=== PATIENT | female | born 1950 ===

== ENCOUNTER → 2020-09-27 | Outpatient (CLI) | payer SELFPAY ==
[~2020-09-27] MED LIST: COVID-19 VACCINE (PFIZER)/PF 30 MCG/0.3 ML VIAL IM ONE; EPINEPHRINE INJ/PF 1 MG/1 ML AMPULE IM PRN
--- OUTSIDE RECORDS SUMMARY | 2020-09-30 10:34 | XMS REPORT ---
:1950 Demographics Address [address] [place] [address] Mobile Email Address Preferred Language [id number] Marital Status Unknown [employer] Affiliation Unknown Race Unknown Additional Race(s) [id number] White Ethnic Group Unknown Author Organization [facility] Address [facility] [address] [place] [address] Care Team Providers Name Role Phone Sae RUBALCAVA Primary Care Physician Unavailable Suzy Attending Clinician Unavailable Allergies, Adverse Reactions, Alerts This patient has no known allergies or adverse reactions. Medications Ordered Filled Start Stop Current Ordering Indication Dosage Frequency Signature Comments Components Medication Medication Date Date Medication? Clinician (SIG) Name Name cetirizine No cetirizine 10 mg 10 mg tablet TK 1 tablet TK T PO QD 1 T PO QD cyclobenzap No cyclobenza rine 10 mg erma 10 tablet TK 1 mg tablet T PO QPM TK 1 T PO QPM fluticasone No fluticason propionate e 50 propionate mcg/actuati 50 on nasal mcg/actuat spray,suspe ion nasal nsion spray,susp ension levothyroxi No levothyrox ne 50 mcg ine 50 mcg tablet TK 1 tablet TK T PO QD 1 T PO QD levothyroxi No levothyrox ne 75 mcg ine 75 mcg tablet TK 1 tablet TK T PO D IN 1 T PO D THE MORNING IN THE ON AN EMPTY MORNING ON STOMACH AN EMPTY STOMACH Lidocaine No Lidocaine Viscous 2 % Viscous 2 mucosal % mucosal solution solution lovastatin No lovastatin 40 mg 40 mg tablet TK 1 tablet TK T PO D 1 T PO D metoclopram No metoclopra sophia 10 mg mide 10 mg tablet TK 1 tablet TK T PO QID B 1 T PO QID MEALS B MEALS omeprazole No omeprazole 40 mg 40 mg capsule,del capsule,de ayed layed release TK release TK 1 C PO 1 C PO DAILY FOR DAILY FOR 30 MINUTES 30 MINUTES BEFORE BEFORE MORNING MORNING MEAL FOR MEAL FOR GERD GERD oxybutynin No oxybutynin chloride 5 chloride 5 mg tablet mg tablet ranitidine No ranitidine 150 mg 150 mg tablet TK 1 tablet TK T PO QD HS 1 T PO QD HS sertraline No sertraline 100 mg 100 mg tablet TK 2 tablet TK TS PO D. 2 TS PO D. sucralfate No sucralfate 1 gram 1 gram tablet tablet verapamil No verapamil ER (SR) 240 ER (SR) mg 240 mg tablet,exte tablet,ext nded ended release TK release TK 1 T PO QD 1 T PO QD Problems Condition Condition Condition Status Onset Resolution Last Treatin g Comments Name Details Category Date Date Treatment Clinician Date Osteoarthro Osteoarthro Problem Active sis of the sis of the 04-18 carpometaca Carpometaca 00:00: rpal joint rpal Joint 00 of the of the thumb Thumb Tendinitis Tendinitis Problem Active of wrist of Wrist 814 00:00: 00 Trigger Trigger Problem Active finger of Finger of 04-18 left hand Left Hand 00:00: 00 Closed Closed Problem Active fracture of Fracture of -15 tibial Tibial 00:00: plateau Plateau 00 Knee pain Knee Pain Problem Active -12 00:00: 00 Procedures Procedure Date / Time Performed Performing Clinician Antwan méndez XR, cervical spine 2020-05-20 00:00:00 OFFICE/OUTPATIENT VISIT, EST 2018-04-13 14:15:00 Open Reduction Internal Fixation, 2017-03-18 00:00:00 Tibia Plateau (Surg) Knee Surgery 2016-09-05 00:00:00 Cataract 2015-09-05 00:00:00 Other 2012-09-05 00:00:00 Results This patient has no known results. Assessments Condition Name Status Diagnosis Date Treating Clinici an Low back pain Active 2020-06-23 10:21:47 Neck pain Active 2020-06-23 10:21:47 Stiffness Active 2020-06-23 10:21:47 Muscle weakness Active 2020-06-23 10:21:47 Abnormal posture Active 2020-06-23 10:21:47 Abnormal gait Active 2020-06-23 10:21:47 Low back pain Active 2020-06-18 08:19:33 Neck pain Active 2020-06-18 08:19:33 Stiffness Active 2020-06-18 08:19:33 Muscle weakness Active 2020-06-18 08:19:33 Abnormal posture Active 2020-06-18 08:19:33 Abnormal gait Active 2020-06-18 08:19:33 Low back pain Active 2020-06-17 10:24:37 Neck pain Active 2020-06-17 10:24:37 Stiffness Active 2020-06-17 10:24:37 Muscle weakness Active 2020-06-17 10:24:37 Abnormal posture Active 2020-06-17 10:24:37 Abnormal gait Active 2020-06-17 10:24:37 Low back pain Active 2020-06-12 15:35:21 Neck pain Active 2020-06-12 15:35:21 Stiffness Active 2020-06-12 15:35:21 Muscle weakness Active 2020-06-12 15:35:21 Abnormal posture Active 2020-06-12 15:35:21 Abnormal gait Active 2020-06-12 15:35:21 Low back pain Active 2020-06-09 14:45:42 Neck pain Active 2020-06-09 14:45:42 Stiffness Active 2020-06-09 14:45:42 Muscle weakness Active 2020-06-09 14:45:42 Abnormal posture Active 2020-06-09 14:45:42 Abnormal gait Active 2020-06-09 14:45:42 Low back pain Active 2020-05-30 13:39:50 Neck pain Active 2020-05-30 13:39:50 Stiffness Active 2020-05-30 13:39:50 Muscle weakness Active 2020-05-30 13:39:50 Abnormal posture Active 2020-05-30 13:39:50 Abnormal gait Active 2020-05-30 13:39:50 Low back pain Active 2020-05-28 10:02:01 Neck pain Active 2020-05-28 10:01:55 Stiffness Active 2020-05-28 10:02:06 Muscle weakness Active 2020-05-28 10:02:22 Abnormal posture Active 2020-05-28 10:02:26 Abnormal gait Active 2020-05-28 10:02:30 Cervical spondylosis Active 2020-05-20 13:29:42 Low back pain Active 2020-05-20 13:29:55 Neck pain Active 2020-05-20 12:38:06 Other secondary cataract, right eye Active Vitreous degeneration, bilateral Active Presence of intraocular lens Active Corneal transplant status Active Encounters Start End Encounter Admission Attending Care Care Encounter Date/Time Date/Time Type Type Clinicians Facility Department ID 2020-06-26 2020-06-26 [facility], 891 [id number] 00:00:00 00:00:00 [place] DPT: [facility] [address] [address] [place] [address], Ph. 2020-06-19 2020-06-19 [facility], 891 [id number] 00:00:00 00:00:00 [facility] DPT: [facility] [address] [place] [phone], Ph. 2020-06-17 2020-06-17 [facility], 891 [id number] 00:00:00 00:00:00 [place] DPT: Blade [facility] [address] [place], [place] [id number], Ph. 2020-06-12 2020-06-12 [facility], 891 [id number] 00:00:00 00:00:00 [place] DPT: Blade [facility] [address] [place], [place] [id number], Ph. 2020-06-10 2020-06-10 [facility], 891 [id number] 00:00:00 00:00:00 [place] DPT: Blade [facility] [address] [place] [phone], Ph. 2020-06-03 2020-06-03 [facility], 891 [id number] 00:00:00 00:00:00 [place] DPT: janine [facility] [address] [place] [phone], Ph. 2020-05-30 2020-05-30 [facility], 891 [id number] 00:00:00 00:00:00 [place] DPT: Juan Daniel [facility] P.[facility] [address] [facility] [place] [address], Ph. 2020-05-20 2020-05-20 Belinda Benoit, [facility], [id number] 00:00:00 00:00:00 PA-C: [id number] Juan Daniel [facility]. [facility] [address] [facility] [place], [facility] [address], [place] [address], Ph. 2018-04-13 2018-04-13 Outpatient SuzyKAILEEJACOB [facility] 39 [id number] 14:15:00 14:15:00 [id number] Immunizations Ordered Immunization Filled Immunization Date Status Commen ts Refusal Reason Name Name influenza, 2016-06-16 Completed injectable, 00:00:00 quadrivalent Social History Smoking Status Start Date Stop Date Never Smoker Vital Signs Vital Name Observation Time Observation Value Comments Height 2020-05-20 00:00:00 61 [in_i] BMI (Body Mass Index) 2020-05-20 00:00:00 40.2 kg/m2 Body Weight 2020-05-20 00:00:00 213 [lb_av] Hospital Discharge Instructions 1. Neck pain neck pain: care instructions XR, cervical spine 2. Cervical spondylosis cervical spondylosis: care instructions neck arthritis: exercises physical therapy neck referral- ROM- FLEX/EXT DEVELOP/TEACH HEP 2- 3 VISITS 3. Low back pain physical therapy back referral - CORE STRETCHING/STRENGTHENING SYRIAN BALL EXERCISES DEVELOP/TEACH HEP Discussion Note: None recorded.
== END ==
LOC: EMPHEALTH 17:32
PROVIDERS: ATTEND Internal Medicine
DX: Z23 Encounter for immunization (principal)
CPT/HCPCS: 91300